=== PATIENT | female | born 1965 | race American Indian/Alaskan Native ===

== ENCOUNTER 2016-08-08 08:23 | Emergency (ER) | payer BC ==
[2016-08-08 08:23] VITALS: BMI 25.8
[2016-08-08 08:28] VITALS: O2SAT 100
[2016-08-08] MEDS ORDERED: Sodium Chloride 0.9% 1,000 ML IV ONE (08:55)
--- NOTE | 2016-08-08 08:55 | C.PDOC ---
History Of Present Illness Patient is a 50 year old female who presents to the ER with a complaint of new onset right sided groin pain that began last night. Patient reports it initially began in the right groin but is now radiating to the right flank; she notes the pain is waxing and waning. Patient also reports having positive menses and an urge to have a bowel movement. Patient has a history of prior kidney stones and history of a right sided colectomy due to polyps. Denies fever , nausea or vomiting. NEW ONSET R GROIN PAIN SINCE LAST NIGHT. INITIALLY R GROIN, NOW RADIATION R FLANK. WAX WANE. HO PRIOR KIDNEY STONE. +URGE TO HAVE BM. +MENSES. NO FEVER, NV. HO R COLECTOMY DUE TO POLYPS EXAM MILD DIST NONTOXIC ABD NEG NO GROIN TEND, MASS NO CVAT REMAINDER NEG Time Seen by Provider: 08/08/16 08:30 Chief Complaint (Nursing): Groin Pain History Per: Patient History/Exam Limitations: no limitations Onset/Duration Of Symptoms: Hrs (Last night), Waxing/Waning Current Symptoms Are (Timing): Gone Quality Of Discomfort: Unable To Describe Associated Symptoms: denies: Fever, Nausea, Vomiting Alleviating Factors: None Recent travel outside of the [place]: No Abnormal Vaginal Bleeding: Yes Past Medical History Reviewed: Historical Data, Nursing Documentation, Vital Signs Vital Signs: Last Vital Signs Temp 97.7 F 08/08/16 10:29 Pulse 52 L 08/08/16 10:29 Resp 20 08/08/16 10:29 BP 126/78 08/08/16 10:29 Pulse Ox 100 08/08/16 10:32 - Medical History PMH: Anemia, Colonic Polyps, Kidney Stones, Chronic Kidney Disease Surgical History: Endoscopy - [facility] Procedures CLOSED ENDOSCOPIC BIOPSY OF LARGE INTESTINE (09/28/14) ENDOSC POLYPECTOMY OF LG INTEST (09/28/14) Family History: States: Unknown Family Hx - Social History Hx Alcohol Use: Yes (OCCASIONAL) Hx Substance Use: No - Immunization History Hx Tetanus Toxoid Vaccination: No Hx Influenza Vaccination: No Hx Pneumococcal Vaccination: No Review Of Systems Except As Marked, All Systems Reviewed And Found Negative. Constitutional: Negative for: Fever Gastrointestinal: Negative for: Nausea, Vomiting Genitourinary: Positive for: Vaginal Bleeding, Other (Right sided groin pain) Musculoskeletal: Positive for: Back Pain (To right flank, radiating from the right side of the groin) Physical Exam - Physical Exam Appears: Non-toxic, Other (Mild Distress) Skin: Normal Color, Warm, Dry Head: Atraumatic, Normacephalic Oral Mucosa: Moist Respiratory: Other (Speaking in complete sentences, no respiratory distress.) Gastrointestinal/Abdominal: Soft, No Tenderness, No Distention Back: Normal Inspection, No CVA Tenderness Pelvic: No Cervical Motion Tenderness, No Adnexal Tenderness, No Mass Neurological/Psych: Oriented x3, Normal Speech, Normal Cognition ED Course And Treatment - Laboratory Results Result Diagrams: 08/08/16 09:12 08/08/16 09:12 O2 Sat by Pulse Oximetry: 100 Progress Note: Toradol, zofran, flomax and IV fluids administered. Progress - Re-Evaluation Re-evaluation Note: 08/08/16 10:15 ASYMPT. VSS. RESULTS DISCUSSED, WOO Herrmann RENAL COLIC MEDS ADVISED TO RETURN IF WORSENING SX. - Data Reviewed Data Reviewed: Lab, Diagnostic imaging, Old records - Continuity of Care Discussed patient case with:: Patient Disposition Counseled Patient/Family Regarding: Studies Performed, Diagnosis, Need For Followup, Rx Given - Disposition Referrals: YOUR,PMD [Other] Disposition: HOME/ ROUTINE Disposition Time: 10:16 Condition: IMPROVED Prescriptions: Acetaminophen/Codeine [Tylenol/Codeine 300 MG/30 MG] 2 tab PO Q6H #20 tab Ibuprofen [Motrin] 600 mg PO Q6 #30 tab Ondansetron ODT [Zofran ODT] 4 mg PO TID PRN #12 odt PRN Reason: Nausea/Vomiting Silodosin [Rapaflo] 8 mg PO DAILY #28 capsule Instructions: Renal Colic (ED) - Clinical Impression Clinical Impression: Groin pain, Renal colic - Scribe Statement The provider has reviewed the documentation as recorded by the Scribdavidson Mattson All medical record entries made by the Bruceibdavidson were at my direction and personally dictated by me. I have reviewed the chart and agree that the record accurately reflects my personal performance of the history, physical exam, medical decision making, and the department course for this patient. I have also personally directed, reviewed, and agree with the discharge instructions and disposition.
[2016-08-08 09:09] LABS: URINE BILIRUBIN NEGATIVE (NEGATIVE); URINE BLOOD 2+ (NEGATIVE); URINE COLOR Yellow (YELLOW); URINE GLUCOSE (UA) NORMAL (Normal); URINE KETONE NEGATIVE (NEGATIVE); URINE LEUKOCYTE ESTERASE NEG Leu/uL (Negative); URINE PROTEIN NEGATIVE (NEGATIVE); URINE UROBILINOGEN NORMAL mg/dL (0.2-1.0); WBC URINE 1 /hpf (0-5)
[2016-08-08] MEDS ORDERED: Sodium Chloride 0.9% 1,000 ML ONE (09:14)
[2016-08-08 09:16] LABS: EOS # 0.1 K/uL (0.0-0.7); EOS % 1.5 % (0.0-4.0); LYMPH # 1.3 K/uL (1.0-4.3); LYMPH % 32.6 % (20.0-40.0); MEAN CELL VOLUME 87.1 fL (81.0-99.0); MEAN CORPUSCULAR HEMOGLOBIN 29.3 pg (27.0-31.0); MEAN CORPUSCULAR HGB CONC 33.7 g/dL (33.0-37.0); MEAN PLATELET VOLUME 7.9 fL (7.2-11.7); MONO # 0.4 K/uL (0.0-0.8); MONO % 11.1 % (0.0-10.0); NRBC % 0.1 % (0.0-2.0); RED CELL DISTRIBUTION WIDTH 16.1 % (11.5-14.5); WHITE BLOOD COUNT 3.8 K/uL (4.8-10.8)
[2016-08-08 09:24] LABS: RBC URINE 3 /hpf (0-3); URINE BACTERIA OCC (<OCC)
[2016-08-08 09:31] LABS: CHLORIDE 102 mmol/L (98-107); SODIUM 139 mmol/L (132-148)
[2016-08-08 09:34] LABS: BLOOD UREA NITROGEN 12 mg/dL (7-17); CARBON DIOXIDE 26 mmol/L (22-30); GFR AFRICAN-AMERICAN > 60
[2016-08-08 09:35] LABS: CALCIUM 7.8 mg/dl (8.6-10.4); GLUCOSE,RANDOM 83 mg/dL (65-105)
--- NOTE | 2016-08-08 10:05 | CT ---
PROCEDURE: CT Abdomen and Pelvis without intravenous contrast HISTORY: R GROIN FLANK PAIN COMPARISON: None. TECHNIQUE: Without contrast.. Contrast Dose: 0 Radiation dose: Total exam DLP = 227.40 mGy-cm. This CT exam was performed using one or more of the following dose reduction techniques: Automated exposure control, adjustment of the mA and/or kV according to patient size, and/or use of iterative reconstruction technique. FINDINGS: LOWER THORAX: Unremarkable. LIVER: Unremarkable. No gross lesion or ductal dilatation. GALLBLADDER AND BILE DUCTS: Unremarkable. PANCREAS: Unremarkable. No gross lesion or ductal dilatation. SPLEEN: Unremarkable. ADRENALS: Unremarkable. No mass. KIDNEYS AND URETERS: 3 mm nonobstructing right lower pole renal calculus. Punctate left upper pole nonobstructing renal calculus. No renal mass. No hydronephrosis. VASCULATURE: Unremarkable. No aortic aneurysm. BOWEL: Patient appears be status post partial right hemicolectomy. There is apparent central anastomosis in the mid descending colon. Please correlate with surgical history. There are surgical sutures seen in the region of the 2nd duodenum and anterior to pancreas. Uncertain significance. Please correlate. No bowel obstruction. APPENDIX: Not identified. PERITONEUM: No ascites. Very small umbilical hernia containing mesenteric fat. LYMPH NODES: Unremarkable. No enlarged lymph nodes. BLADDER: Suboptimally distended. No gross abnormality. REPRODUCTIVE: Unremarkable uterus. BONES: No acute fracture. OTHER FINDINGS: None. IMPRESSION: No evidence of urinary tract obstruction. 3 mm right lower pole nonobstructing calculus and punctate left upper pole nonobstructing renal calculus. Evidence of probable prior partial right colectomy. Additional surgical sutures as described of uncertain significance. Please correlate with patient history. No other significant abnormality.
[2016-08-08 10:30] VITALS: BP 126/78; PULSE 52; RESP 20; TEMP 97.7
== END 2016-08-08 10:29 | disposition home or self-care (01) ==
LOC: C.ER 08:23
DX: N20.0 Calculus of kidney (principal)
CPT/HCPCS: 74176; 80048; 81001; 84703; 85025; 96374; 96375; 99285; J1885; J2405; J7040

== ENCOUNTER 2017-04-15 00:13 | Emergency (ER) | payer BC ==
[2017-04-15 00:13] VITALS: BMI 25.8
[2017-04-15 00:29] VITALS: RESP 20; TEMP 98.1; O2SAT 100
[2017-04-15] MEDS ORDERED: Sodium Chloride 0.9% 1,000 ML IV ONE ×2 (00:43→02:10)
--- NOTE | 2017-04-15 00:43 | C.PDOC ---
History Of Present Illness Patient presents today with complaints of vaginal bleeding with large clots. She reports she has taken 2 tests and both were negative. Patient went for her annual follow up on March 05 and was informed she had a small fibroid and cyst. She denies any fever, chills, nausea, vomiting, chest pain, shortness of breath or palpitations. She is speaking in full sentences. No other complaints. Time Seen by Provider: 04/15/17 00:42 Chief Complaint (Nursing): Female Genitourinary History Per: Patient History/Exam Limitations: no limitations Current Symptoms Are (Timing): Still Present Abnormal Vaginal Bleeding: Yes Past Medical History Reviewed: Historical Data, Nursing Documentation, Vital Signs Vital Signs: Last Vital Signs Temp 98.1 F 04/15/17 00:25 Pulse 68 04/15/17 00:25 Resp 20 04/15/17 00:25 BP 116/62 04/15/17 05:20 Pulse Ox 100 04/15/17 01:19 - Medical History PMH: Anemia, Colonic Polyps, HTN, Kidney Stones, Chronic Kidney Disease Surgical History: Endoscopy - [facility] Procedures CLOSED ENDOSCOPIC BIOPSY OF LARGE INTESTINE (09/28/14) ENDOSC POLYPECTOMY OF LG INTEST (09/28/14) Family History: States: Unknown Family Hx - Social History Hx Alcohol Use: Yes (OCCASIONAL) Hx Substance Use: No - Immunization History Hx Tetanus Toxoid Vaccination: No Hx Influenza Vaccination: Yes Hx Pneumococcal Vaccination: No Review Of Systems Constitutional: Negative for: Fever, Chills Cardiovascular: Negative for: Chest Pain, Palpitations Respiratory: Negative for: Shortness of Breath Gastrointestinal: Negative for: Nausea, Vomiting Genitourinary: Positive for: Vaginal Bleeding Physical Exam - Physical Exam Appears: Non-toxic Skin: Normal Color Head: Normacephalic Eye(s): bilateral: Normal Inspection Neck: Supple Chest: Symmetrical Cardiovascular: Rhythm Regular Respiratory: No Rales, No Rhonchi, No Stridor Neurological/Psych: Oriented x3 ED Course And Treatment - Laboratory Results Result Diagrams: 04/15/17 00:43 04/15/17 00:43 O2 Sat by Pulse Oximetry: 100 (RA) Pulse Ox Interpretation: Normal Disposition Counseled Patient/Family Regarding: Studies Performed, Diagnosis, Need For Followup - Disposition Referrals: Alejo Huertas MD [Staff Provider] - Disposition: HOME/ ROUTINE Disposition Time: 00:43 Condition: FAIR Instructions: Heavy Periods (DC), Uterine Fibroids Forms: [employer] (Italian) - Clinical Impression Clinical Impression: DUB (dysfunctional uterine bleeding), Fibroids - Scribe Statement The provider has reviewed the documentation as recorded by the Scribe (Ealna Bañuelos) Provider Attestation: All medical record entries made by the Bruceibe were at my direction and personally dictated by me. I have reviewed the chart and agree that the record accurately reflects my personal performance of the history, physical exam, medical decision making, and the department course for this patient. I have also personally directed, reviewed, and agree with the discharge instructions and disposition.
[2017-04-15] MEDS ORDERED: Sodium Chloride 0.9% 1,000 ML ONE (01:27)
[2017-04-15 01:44] LABS: BASO % 0.9 % (0.0-2.0); EOS % 0.6 % (0.0-4.0); HEMOGLOBIN 9.2 g/dL (11.0-16.0); LYMPH # 1.7 K/uL (1.0-4.3); LYMPH % 31.9 % (20.0-40.0); MEAN CELL VOLUME 82.4 fL (81.0-99.0); MEAN CORPUSCULAR HEMOGLOBIN 28.2 pg (27.0-31.0); MEAN CORPUSCULAR HGB CONC 34.2 g/dL (33.0-37.0); MEAN PLATELET VOLUME 8.5 fL (7.2-11.7); MONO # 0.5 K/uL (0.0-0.8); MONO % 9.6 % (0.0-10.0); NEUT # 2.9 K/uL (1.8-7.0); RBC 3.25 Mil/uL (3.80-5.20); RED CELL DISTRIBUTION WIDTH 14.5 % (11.5-14.5); WHITE BLOOD COUNT 5.2 K/uL (4.8-10.8)
[2017-04-15 02:14] LABS: ALBUMIN 3.9 g/dL (3.5-5.0); ALT/SGPT 21 U/L (9-52); AST/SGOT 25 U/L (14-36); BLOOD UREA NITROGEN 10 mg/dL (7-17); CALCIUM 8.6 mg/dl (8.6-10.4); GFR AFRICAN-AMERICAN > 60; GFR NON-AFRICAN AMERICAN > 60; PROTHROMBIN TIME 11.1 SECONDS (9.7-12.2)
[2017-04-15 05:21] VITALS: BP 116/62
--- NOTE | 2017-04-15 05:39 | US ---
EXAM: US Pelvis Complete, Transabdominal CLINICAL HISTORY: 51 years old, female; Signs and symptoms; Other: Heavy vag bleed TECHNIQUE: Real-time transabdominal pelvic ultrasound (complete) with image documentation. COMPARISON: No relevant prior studies available. FINDINGS: Uterus/cervix: Uterus measures 10.0 x 5.0 x 5.9 cm in size. Mildly heterogeneous uterus. 2.3 x 2.3 x 1.7 poorly defined intramural uterine fundal hyperechoic lesion. Nabothian cyst. Endometrium: 0.5 cm in thickness, heterogeneous. Right ovary: 2.7 x 1.9 x 2.2 cm in size. No mass. Normal flow. Left ovary: 2.4 x 3.3 x 2.0 cm in size. 1.3 x 1.5 x 0.8 cm anechoic lesion. Normal flow. Free fluid: Small free fluid within pelvis. Bladder: Unremarkable as visualized. IMPRESSION: 1. Uterine lesion, nonspecific but possibly fibroid. Suggest followup. 2. LEFT ovarian cyst. 3. Incidental/non-acute findings are described above. EXAM: US Pelvis, Transvaginal CLINICAL HISTORY: 51 years old, female; Signs and symptoms; Other: Heavy vag bleed TECHNIQUE: Real-time transvaginal pelvic ultrasound (complete) with image documentation. Transvaginal imaging was used for better evaluation of the endometrium and adnexa. COMPARISON: No relevant prior studies available. FINDINGS: Uterus/cervix: Uterus measures 10.0 x 5.0 x 5.9 cm in size. Mildly heterogeneous uterus. 2.3 x 2.3 x 1.7 poorly defined intramural uterine fundal hyperechoic lesion. Nabothian cyst. Endometrium: 0.5 cm in thickness, heterogeneous. Right ovary: 2.7 x 1.9 x 2.2 cm in size. No mass. Normal flow. Left ovary: 2.4 x 3.3 x 2.0 cm in size. 1.3 x 1.5 x 0.8 cm anechoic lesion. Normal flow. Free fluid: Small free fluid within pelvis. Bladder: Empty bladder which cannot be evaluated with this probe.
[2017-04-15 05:52] VITALS: PULSE 61
== END 2017-04-15 06:00 | disposition home or self-care (01) ==
LOC: C.ER 00:13
DX: D25.9 Leiomyoma of uterus, unspecified (principal); N93.8 Other specified abnormal uterine and vaginal bleeding
CPT/HCPCS: 76830; 76856; 80053; 84702; 85025; 85610; 85730; 86850; 86900; 96360; 99284; J7040

== ENCOUNTER 2017-10-01 10:05 | Inpatient (IN) | payer BC ==
[2017-09-27 11:01] VITALS: BMI 24.4
[2017-10-01] MEDS ORDERED: ceFAZolin IV 1 gm in Dextrose 0 GM/0 ML BAG IVPB ONE (10:22)
[2017-10-01] MEDS ORDERED: Propofol 10 mg/ml Inj (20 ML) ONE (10:25)
[2017-10-01] MEDS ORDERED: Midazolam 2 MG/2 ML VIAL ONE (11:45)
[2017-10-01] MEDS ORDERED: cefOXitin IV 2 gm in Dextrose 0 GM/0 ML BAG IVPB ONE (11:56)
[2017-10-01] MEDS ORDERED: ceFAZolin IV 1 gm in Dextrose 2 GM/100 ML BAG IVPB ONE (12:38)
[2017-10-01] MEDS ORDERED: Succinylcholine Chloride 20 mg/ml Syr (5 ml) IV ONE (12:46)
[2017-10-01] MEDS ORDERED: Rocuronium 10 mg/ml (5 ml) ONE ×2 (12:50→13:13)
[2017-10-01] MEDS ORDERED: ePHEDrine 50 mg/ml Inj ONE (13:00)
[2017-10-01] MEDS ORDERED: Phenylephrine 10 mg/ml Inj ONE (13:31)
[2017-10-01] MEDS ORDERED: Neostigmine Methylsulfate 3mg/3ml Syringe IV ONE (13:35)
[2017-10-01] MEDS ORDERED: Naloxone 0.4 mg/ml Inj (Adult) ONE (14:16)
[2017-10-01] MEDS ORDERED: Lactated Ringer's 1,000 ML IV SCH (14:30)
--- NOTE | 2017-10-01 14:42 | PCM.OP ---
Operative Report - Operative Report Date of Surgery/Procedure: 10/01/17 Time of Surgery/Procedure: 13:00 Surgeon: Dr. Rivera Merchandise Associate: Dr. Kramer Anesthesia/Sedation: General Pre-Operative Diagnosis: Fibroid Uterus. Severe Anemia. Recurrent Menometrorrhagia Post-Operative Diagnosis: Same Indication for Surgery: Severe Anemia with. Recurrent Menometrorrhagia Operative Findings: Uterus Enlarged to 10 Weeks size. Both adnexae: Intact Procedure/Operation Description: Supracervical Hysterectomy Estimated Blood Loss: 100 CC Complications: None Discharge & Condition: Satisfactory
[2017-10-01] MEDS: HYDROmorphone 0.5 mg/0.5 ml ISec IVP PRN ×4 (14:43→15:55)
[2017-10-01] MEDS ORDERED: cefOXitin IV 1 gm in Dextrose 1 GM/50 ML BAG IVPB SCH (15:00)
[2017-10-01] MEDS: cefOXitin IV 1 gm in Dextrose 1 GM/50 ML BAG IVPB SCH (20:19)
[2017-10-01] MEDS ORDERED: Enoxaparin 30 mg Syringe SC SCH (22:00)
[2017-10-02] MEDS: Oxycodone/Acetaminophen 5/325 mg Tab PO PRN ×4 (00:30→21:14)
[2017-10-02] MEDS: cefOXitin IV 1 gm in Dextrose 1 GM/50 ML BAG IVPB SCH (04:13)
[2017-10-02 07:12] LABS: BASO % 0.3 % (0.0-2.0); LYMPH # 0.9 K/uL (1.0-4.3); LYMPH % 7.9 % (20.0-40.0); MEAN CELL VOLUME 91.4 fL (81.0-99.0); MEAN CORPUSCULAR HEMOGLOBIN 31.2 pg (27.0-31.0); MEAN CORPUSCULAR HGB CONC 34.1 g/dL (33.0-37.0); MEAN PLATELET VOLUME 8.2 fL (7.2-11.7); MONO # 0.8 K/uL (0.0-0.8); MONO % 6.9 % (0.0-10.0); NEUT # 9.7 K/uL (1.8-7.0); NEUT % 84.9 % (50.0-75.0); PLATELET COUNT 282 K/uL (130-400); RBC 3.21 Mil/uL (3.80-5.20); RED CELL DISTRIBUTION WIDTH 15.3 % (11.5-14.5); WHITE BLOOD COUNT 11.4 K/uL (4.8-10.8)
[2017-10-02 07:23] LABS: BLOOD UREA NITROGEN 11 mg/dL (7-17); CALCIUM 8.8 mg/dl (8.6-10.4); GFR AFRICAN-AMERICAN > 60; GFR NON-AFRICAN AMERICAN > 60
[2017-10-02 08:12] VITALS: O2SAT 100
[2017-10-02 11:10] LABS: BANDS 1 % (0-2); LYMPHOCYTE 7 % (20-40); MONOCYTE 7 % (0-10); NEUTROPHIL 85 % (50-75); PLATELET ESTIMATE NORMAL (NORMAL); TOTAL CELLS COUNTED 100
[2017-10-02 11:11] LABS: ANISOCYTOSIS SLIGHT; HYPOCHROMIC SLIGHT; POLYCHROMIC SLIGHT
[2017-10-02 11:12] LABS: LARGE PLATELETS PRESENT
[2017-10-02] MEDS: Enoxaparin 30 mg Syringe SC SCH (13:45)
--- NOTE | 2017-10-02 15:00 | CP.PCM.DIS ---
Provider - Provider Date of Admission: 10/01/17 10:05 10-02-17 Pre-op Dx: Fibroid Uterus Recurrent Menometrorrhagia Severe Anemia OP: Supracervical Hysterectomy Post-op condition : Satisfactory Attending physician: Jorge Alberto Rivera MD Time Spent in preparation of Discharge (in minutes): 10 Hospital Course - Lab Results Lab Results: Most Recent Lab Values WBC 11.4 K/uL (4.8-10.8) H D 10/02/17 06:59 RBC 3.21 Mil/uL (3.80-5.20) L 10/02/17 06:59 Hgb 10.0 g/dL (11.0-16.0) L 10/02/17 06:59 Hct 29.3 % (34.0-47.0) L 10/02/17 06:59 MCV 91.4 fL (81.0-99.0) 10/02/17 06:59 MCH 31.2 pg (27.0-31.0) H 10/02/17 06:59 MCHC 34.1 g/dL (33.0-37.0) 10/02/17 06:59 RDW 15.3 % (11.5-14.5) H 10/02/17 06:59 Plt Count 282 K/uL (130-400) 10/02/17 06:59 MPV 8.2 fL (7.2-11.7) 10/02/17 06:59 Neut % (Auto) 84.9 % (50.0-75.0) H 10/02/17 06:59 Lymph % (Auto) 7.9 % (20.0-40.0) L 10/02/17 06:59 [place] % (Auto) 6.9 % (0.0-10.0) 10/02/17 06:59 Eos % (Auto) 0.0 % (0.0-4.0) 10/02/17 06:59 Baso % (Auto) 0.3 % (0.0-2.0) 10/02/17 06:59 Neut # (Auto) 9.7 K/uL (1.8-7.0) H 10/02/17 06:59 Lymph # (Auto) 0.9 K/uL (1.0-4.3) L 10/02/17 06:59 [place] # (Auto) 0.8 K/uL (0.0-0.8) 10/02/17 06:59 Eos # (Auto) 0.0 K/uL (0.0-0.7) 10/02/17 06:59 Baso # (Auto) 0.0 K/uL (0.0-0.2) 10/02/17 06:59 Neutrophils % (Manual) 85 % (50-75) H 10/02/17 06:59 Band Neutrophils % 1 % (0-2) 10/02/17 06:59 Lymphocytes % (Manual) 7 % (20-40) L 10/02/17 06:59 Monocytes % (Manual) 7 % (0-10) 10/02/17 06:59 Platelet Estimate Normal (NORMAL) 10/02/17 06:59 Large Platelets Present 10/02/17 06:59 Polychromasia Slight 10/02/17 06:59 Hypochromasia (manual) Slight 10/02/17 06:59 Anisocytosis (manual) Slight 10/02/17 06:59 Sodium 139 mmol/L (132-148) 10/02/17 06:59 Potassium 4.4 mmol/L (3.6-5.2) 10/02/17 06:59 Chloride 104 mmol/L (98-107) 10/02/17 06:59 Carbon Dioxide 26 mmol/L (22-30) 10/02/17 06:59 Anion Gap 13 (10-20) 10/02/17 06:59 BUN 11 mg/dL (7-17) 10/02/17 06:59 Creatinine 0.7 mg/dL (0.7-1.2) 10/02/17 06:59 Est GFR ( Amer) > 60 10/02/17 06:59 Est GFR (Non-Af Amer) > 60 10/02/17 06:59 Random Glucose 102 mg/dL (65-105) 10/02/17 06:59 Calcium 8.8 mg/dl (8.6-10.4) 10/02/17 06:59 Blood Type O NEGATIVE 10/01/17 11:20 Antibody Screen Negative 10/01/17 11:20 Discharge Plan - Follow Up Plan Condition: GOOD Disposition: HOME/ ROUTINE
--- NOTE | 2017-10-02 15:09 | CP.PCM.PN ---
Subjective - Date & Time of Evaluation Date of Evaluation: 10/02/17 Time of Evaluation: 15:05 - Subjective Subjective: POD #1 No C/O VS stable Abdomen Soft Wound Clean P: Home in AM if stable Objective - Vital Signs/Intake and Output Vital Signs (last 24 hours): Temp Pulse Resp BP Pulse Ox 97.4 F L 67 20 99/52 L 100 10/02/17 08:11 10/02/17 08:11 10/02/17 08:11 10/02/17 08:11 10/02/17 08:11 Intake and Output: 10/02/17 10/02/17 06:59 18:59 Intake Total 125 1700 Output Total 1650 Balance 125 50 - Medications Medications: Current Medications Enoxaparin Sodium (Lovenox) 30 mg SC DAILY [facility] Last Admin: 10/02/17 13:45 Dose: 30 mg Lactated Ringer's (Lactated Ringer's) 1,000 mls @ 125 mls/hr IV .Q8H [facility] Last Admin: 10/02/17 01:45 Dose: 125 mls/hr Ketorolac Tromethamine (Toradol) 30 mg IVP Q6 PRN PRN Reason: Pain, moderate (4-7) Last Admin: 10/02/17 05:30 Dose: 30 mg Oxycodone/Acetaminophen (Percocet 5/325 Mg Tab) 1 tab PO Q4 PRN PRN Reason: Pain, moderate (4-7) Stop: 10/04/17 14:19 Last Admin: 10/02/17 10:49 Dose: 1 tab - Labs Labs: 10/02/17 06:59 10/02/17 06:59
[2017-10-03] MEDS: Oxycodone/Acetaminophen 5/325 mg Tab PO PRN ×3 (02:18→13:16)
[2017-10-03] MEDS: Enoxaparin 30 mg Syringe SC SCH (08:59)
[2017-10-03 17:01] VITALS: BP 124/69; PULSE 68; RESP 20; TEMP 98.2
--- NOTE | 2017-10-05 12:26 | OP ---
Copied To: Jorge Alberto Rivera MD Attending MD: Jorge Alberto Rivera MD PROCEDURE DATE: 10/01/2017 NATURE OF OPERATION: Supracervical hysterectomy. ATTENDING/OPERATING SURGEON: Jorge Alberto Rivera MD INTERNATIONAL ACCOUNT EXECUTIVE: Raul Kramer MD PRICE LISTER: Dr. Jovel. KIND OF ANESTHESIA: General. PREOPERATIVE DIAGNOSES: Fibroid uterus, severe anemia, and recurrent menometrorrhagia. POSTOPERATIVE DIAGNOSES: Fibroid uterus, severe anemia, and recurrent menometrorrhagia. ESTIMATED BLOOD LOSS: 100 mL. FINDINGS: The uterus was enlarged to about 10 weeks' size of gestation with a small fibroid. Both adnexa were within normal limits. DESCRIPTION OF PROCEDURE: Under general anesthesia, the patient was placed in supine position. The routine prep was done, and the anterior abdominal wall was draped. The abdominal cavity was entered through a vertical midline incision. Pelvic organs were palpated and visualized. Self-retaining retractor was placed in the abdominal cavity, and the bowel loops were packed away using wet gauze pack. The uterus was grasped with the tenaculum forceps and lifted up. The round ligaments were clamped, cut, and ligated with a 0 Vicryl suture ligature bilaterally. The uterovesical fold of peritoneum was opened. The bladder was pushed downward gently using a sponge stick. The index finger was pushed bluntly through the avascular part of broad ligament perforating its posterior layer close to the uterus below the level of attachment of round ligament, fallopian tube, and the utero-ovarian ligament. The right and left ovaries were preserved by doubly clamping and dividing the ovarian ligament and ligating with 0 Vicryl suture ligature. The procedure was then repeated on the right side after the left side. The posterior peritoneal reflection was incised, and the uterine vessels were skeletonized. The uterine vessels were clamped with clamps bilaterally, cut and ligated with the 0 Vicryl suture ligature. The bladder was further pushed downward by sponge forceps and the cardinal ligament on each side together with the vascular plexus, clamped close to the lateral border of cervix. They were divided and ligated with a 0 Vicryl suture ligature. The supracervical hysterectomy was done, leaving the cervix and removing the uterus. The [id number] stitches were put on the cervical stump. No bleeding was noted. The pelvic cavity was cleaned of blood and blood clots, and complete hemostasis was ensured. Closure was then started. The peritoneum was closed with the 0 chromic catgut continuous stitch, continuous interlocking stitches of 0 Vicryl for fascia, and intraoperative #2-0 plain catgut was used for subcutaneous tissue. The skin was closed with the marcy. Wound was cleaned and sterile dressing applied. At the end of the procedure, urine was clear. The patient tolerated the procedure well and was sent to the recovery room in satisfactory condition. Jorge Alberto Rivera MD
== END 2017-10-03 18:43 | disposition home or self-care (01) | DRG 743 ==
LOC: C.9S 10:05 → C.4M 17:48
PROVIDERS: ADMIT Obstetrics & Gynecology Gynecology; ATTEND Obstetrics & Gynecology Gynecology
PROC: 0UT90ZL Resection of Uterus, Supracervical, Open Approach (ICD-10-PCS; principal; 2017-10-01 11:00)
DX: D25.9 Leiomyoma of uterus, unspecified (principal); D64.9 Anemia, unspecified; N92.1 Excessive and frequent menstruation with irregular cycle

== ENCOUNTER 2017-12-20 13:53 | Emergency (ER) | payer BC ==
[2017-12-20 13:53] VITALS: BMI 24.4
[2017-12-20] MEDS ORDERED: Lidocaine 2% Inj (20ml) INFIL ONE (16:05)
[2017-12-20] MEDS ORDERED: Lidocaine 2% MPF (5 ml) Inj ONE (16:21)
--- NOTE | 2017-12-20 16:57 | C.PDOC ---
History Of Present Illness 52 y/o female presents to the ED with complaints of swelling and pain to the right vaginal area onset 2 days ago. Area is itchy, patient reports scratching at it. States there is now swelling developing. She tried to see her OBGYN Dr. Rivera, who referred patient to the ED. Otherwise she denies any fever, chills, abdominal pain, dysuria, or hematuria. Time Seen by Provider: 12/20/17 15:39 Chief Complaint (Nursing): Female Genitourinary History Per: Patient History/Exam Limitations: no limitations Onset/Duration Of Symptoms: Days Current Symptoms Are (Timing): Still Present Past Medical History Reviewed: Historical Data, Nursing Documentation, Vital Signs Vital Signs: Last Vital Signs Temp 100.5 F H 12/20/17 14:18 Pulse 97 H 12/20/17 14:18 Resp 16 12/20/17 14:18 BP 120/71 12/20/17 14:18 Pulse Ox 100 12/20/17 14:18 - Medical History PMH: Anemia, Colonic Polyps, HTN, Kidney Stones (LASER TX. DONE), Chronic Kidney Disease Surgical History: Endoscopy - [facility] Procedures (10/01/17) CLOSED ENDOSCOPIC BIOPSY OF LARGE INTESTINE (09/28/14) ENDOSC POLYPECTOMY OF LG INTEST (09/28/14) Family History: States: Unknown Family Hx - Social History Hx Alcohol Use: Yes (OCCASIONAL) Hx Substance Use: No - Immunization History Hx Tetanus Toxoid Vaccination: No Hx Influenza Vaccination: Yes Hx Pneumococcal Vaccination: No Review Of Systems Except As Marked, All Systems Reviewed And Found Negative. Constitutional: Negative for: Fever, Chills Gastrointestinal: Negative for: Vomiting, Abdominal Pain, Diarrhea Genitourinary: Positive for: Other (Swelling and pain to right vaginal area). Negative for: Dysuria, Hematuria, Vaginal Discharge Neurological: Negative for: Weakness, Headache Physical Exam - Physical Exam Appears: Non-toxic, No Acute Distress Skin: Warm, Dry Head: Atraumatic, Normacephalic Eye(s): bilateral: Normal Inspection, PERRL, EOMI Oral Mucosa: Moist Chest: Symmetrical Cardiovascular: Rhythm Regular, No Murmur Respiratory: Normal Breath Sounds, No Accessory Muscle Use, Other (speaking in full sentences) Gastrointestinal/Abdominal: Soft, No Tenderness, No Distention Pelvic: Other (External Exam - significant swelling to the right labia majora, extending down to vaginal area; with (+) induration, erythema, and warmth) Neurological/Psych: Oriented x3, Normal Speech ED Course And Treatment O2 Sat by Pulse Oximetry: 100 (RA) Pulse Ox Interpretation: Normal - Incision & Drainage Of Abscess Anesthesia: Lidocaine 2% (5 ml) Prep Used: Sterile Water (and chlorohexadine) Procedure: Incised W/Scalpel Blade#: (11, used to create 0.5 cm incision), Drained Pus (approx 2 ml of very thick purulent material), Irrigated Cavity W/Saline Laceration - Laceration Repair sutures placed: Wound Length (In cm): .5 Description Of Wound: Linear Anesthesia: Lidocaine 2% Wound Closure: Suture (x2, 1 to each side) Suture Technique And Material Used: Nylon (2:0) Wound Complexity: Simple Medical Decision Making Medical Decision Making: Impression: abscess Plan: Tylenol and Motrin administered for pain. Patient started on Clindamycin, initial dose PO given in the ED. I&D performed by me, tolerated well by patient. Chlorohexadine used to clean the site in a sterile manner, as patient allergic to Betadine. Tacked the incision open: two sutures placed (2:0 nylon), one to each side, to facilitate drainage. *See procedure notes* Educated patient regarding wound care and the importance of follow up. Patient feels comfortable being discharged and expresses understanding of instructions. Disposition Counseled Patient/Family Regarding: Diagnosis, Need For Followup, Rx Given - Disposition Disposition: HOME/ ROUTINE Disposition Time: 16:54 Condition: GUARDED Additional Instructions: Prescriptions sent to [facility]. Prescriptions: Clindamycin [Cleocin] 1 cap PO QID #28 cap Ibuprofen [Motrin] 600 mg PO TID #15 tab Instructions: Bartholin's Gland Cyst, How to Do a Sitz Bath Forms: General Discharge Instructions, Work/School/Gym Excuse, [facility] ([place]) - POA Present On Arrival: None - Clinical Impression Clinical Impression: Bartholin's gland abscess - Scribe Statement The provider has reviewed the documentation as recorded by the Scribe (Pilar Spencer) Provider Attestation: All medical record entries made by the Scribe were at my direction and personally dictated by me. I have reviewed the chart and agree that the record accurately reflects my personal performance of the history, physical exam, medical decision making, and the department course for this patient. I have also personally directed, reviewed, and agree with the discharge instructions and disposition.
[2017-12-20 17:08] VITALS: BP 109/62; PULSE 82; RESP 18; TEMP 100
[2017-12-20 17:46] VITALS: O2SAT 100
== END 2017-12-20 17:08 | disposition home or self-care (01) ==
LOC: C.ER 13:53
DX: N75.1 Abscess of Bartholin's gland (principal)

== ENCOUNTER 2017-12-22 17:29 | Emergency (ER) | payer BC ==
[2017-12-22 17:29] VITALS: BMI 24.4
[2017-12-22 17:57] VITALS: BP 119/71; PULSE 60; RESP 18; TEMP 97.7; O2SAT 100
--- NOTE | 2017-12-22 18:44 | C.PDOC ---
History Of Present Illness pt here for wound check s/p bartholin abscess i and d few days ago. pt compliant with medications,. c/o mild pain. sts one stitch fell out., Time Seen by Provider: 12/22/17 18:09 Chief Complaint (Nursing): Wound Check History Per: Patient History/Exam Limitations: no limitations Onset/Duration Of Symptoms: Days Ago Current Symptoms Are (Timing): Better Past Medical History Reviewed: Historical Data, Nursing Documentation, Vital Signs Vital Signs: Last Vital Signs Temp 97.7 F 12/22/17 17:54 Pulse 60 12/22/17 17:54 Resp 18 12/22/17 17:54 BP 119/71 12/22/17 17:54 Pulse Ox 100 12/22/17 17:54 - Medical History PMH: Anemia, Colonic Polyps, HTN, Kidney Stones (LASER [place]. DONE), Chronic Kidney Disease Surgical History: Endoscopy - [facility] Procedures (10/01/17) CLOSED ENDOSCOPIC BIOPSY OF LARGE INTESTINE (09/28/14) ENDOSC POLYPECTOMY OF LG INTEST (09/28/14) Family History: States: Unknown Family Hx - Social History Hx Alcohol Use: Yes (OCCASIONAL) Hx Substance Use: No - Immunization History Hx Tetanus Toxoid Vaccination: No Hx Influenza Vaccination: Yes Hx Pneumococcal Vaccination: No Review Of Systems Constitutional: Negative for: Fever, Chills Skin: Positive for: Other (healing bartholin abscess). Negative for: Rash Physical Exam - Physical Exam Appears: Non-toxic, No Acute Distress Gastrointestinal/Abdominal: Bowel Sounds, Soft, No Tenderness Pelvic: Other (right lower labia with induration. no warmth. open wound, able to express purulent matter. mild tenderness) ED Course And Treatment O2 Sat by Pulse Oximetry: 100 Medical Decision Making Medical Decision Making: well healing abscess, still with puruelnt discharge. on antobiotics. advised to continue sitz bath. warm compress, f/ugyn Disposition Counseled Patient/Family Regarding: Diagnosis, Need For Followup - Disposition Disposition: HOME/ ROUTINE Disposition Time: 18:42 Condition: GOOD Additional Instructions: Please finish antibiotics. Tylenol or Motrin for pain. Continue several times a day with warm compresses to area or sitz baths. 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 Forms: [employer] (Amharic), General Discharge Instructions - Clinical Impression Clinical Impression: Wound check, abscess
== END 2017-12-22 18:52 | disposition home or self-care (01) ==
LOC: C.ER 17:29
DX: Z48.00 Encounter for change or removal of nonsurgical wound dressing (principal); N75.1 Abscess of Bartholin's gland